=== PATIENT | male | born 1945 | race Caucasian/White ===

== ENCOUNTER 2018-12-16 06:03 | Inpatient (IN) | payer MEDICARE ==
[~2018-12-16 06:03] MED LIST: Acetaminophen TAB* 325 MG PO ONE; Buffered Lidocaine 1% SYRIN* 1 ML/SYRINGE INTRADERM ONE; Famotidine IV* 10 MG/ML 2 ML (20 mg) IV ONE; Gabapentin CAP(*) 300 MG PO ONE; Lactated Ringers 1000 ML Bag* 1,000 ML IV SCH; Tranexamic Acid 1,000 MG in NS 0.9% 50 ML* (outpatient use) IV SCH
[2018-12-16] MEDS ORDERED: Gabapentin CAP(*) 300 MG ONE (06:14)
[2018-12-16] MEDS ORDERED: Acetaminophen TAB* 325 MG ONE (06:14)
[2018-12-16] MEDS ORDERED: celeCOXIB CAP* 200 MG ONE (06:15)
[2018-12-16] MEDS ORDERED: Famotidine IV* 10 MG/ML 2 ML (20 mg) ONE (06:15)
[2018-12-16] MEDS ORDERED: ceFAZolin 2 GM in NS PREMIX(*) 2 GM/100 ML BAG IVPB ONE (06:15)
[2018-12-16] MEDS: celeCOXIB CAP* 200 MG PO ONE ×2 (06:34→06:35)
[2018-12-16] MEDS ORDERED: Lidocaine 2% PF * 5 ML VIAL ONE ×2 (06:56→08:05)
[2018-12-16] MEDS ORDERED: Propofol* 10 MG/ML 20 ML BTL ONE (06:56)
[2018-12-16] MEDS ORDERED: Dexamethasone IV* 4 MG/ML 1 ML (4 MG) ONE (06:56)
[2018-12-16] MEDS ORDERED: Propofol* 500 MG/50 ML BTL ONE (06:56)
[2018-12-16] MEDS ORDERED: Sodium Chloride 0.9%* 20 ML ONE (06:56)
[2018-12-16] MEDS ORDERED: Ketorolac INJ* 30 MG/ML 1 ML VIAL ONE (06:56)
[2018-12-16] MEDS ORDERED: ROPIVACAINE 5 MG/ML 30 ML BTL (0.5%) ONE ×2 (06:56→07:47)
[2018-12-16] MEDS ORDERED: Ondansetron INJ* 2 MG/ML VIAL ONE (06:56)
[2018-12-16] MEDS ORDERED: fentaNYL* 50 MCG/ML 2 ML VIAL (100 MCG VIAL) ONE (06:57)
[2018-12-16] MEDS ORDERED: KETAMINE HCL* 50 MG/ML 10 ML VIAL ONE (06:57)
[2018-12-16] MEDS ORDERED: Midazolam* 1 MG/ML 10 ML VIAL (10 MG) ONE (06:57)
[2018-12-16] MEDS ORDERED: Bupivacaine 0.5%* 50 ML MDV VIAL ONE ×2 (07:22→09:52)
[2018-12-16] MEDS ORDERED: Lidocaine 1% w EPI 1:200,000* SDV 30 ML VIAL ONE ×2 (08:02→09:52)
[2018-12-16] MEDS ORDERED: Ondansetron INJ* 2 MG/ML VIAL IV PRN ×2 (09:41→11:01)
[2018-12-16] MEDS ORDERED: fentaNYL* 50 MCG/ML 2 ML VIAL (100 MCG VIAL) IV PRN (09:41)
[2018-12-16] MEDS ORDERED: Naloxone* 0.4 MG/ML 1 ML VIAL IV PRN (09:41)
[2018-12-16] MEDS ORDERED: diPHENhydraMINE PO* 25 MG PO PRN (11:01)
[2018-12-16] MEDS ORDERED: Magnesium Hydroxide LIQ* 30 ML UDC PO PRN (11:01)
[2018-12-16] MEDS ORDERED: Ondansetron ODT TAB* 4 MG PO PRN (11:01)
[2018-12-16] MEDS ORDERED: diPHENhydraMINE IV* 50 MG/ML 1 ml VIAL (BENADRYL) IV PRN (11:01)
--- NOTE | 2018-12-16 13:22 | CONS ---
CC: Dr. Zhong; Dr. Hernandez * CONSULTATION REPORT: DATE OF CONSULT: 12/16/18 PRIMARY CARE PROVIDER: Dr. Zhong REQUESTING PROVIDER: Dr. Hernandez from Orthopedic Surgery REASON FOR CONSULTATION: Medical management of the patient with hypertension and history of PE. CHIEF COMPLAINT: Right knee pain. 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 Hernandez and is seen in the postoperative unit for medical management. Currently, the patient feels little "groggy." He does not feel pain in the right leg postoperatively. Medicine is going to be assisting with medical management. PAST MEDICAL HISTORY: 1. History of right knee tendon repair in 1970s and postoperative PE. 2. Status post right hip surgery in 2015 with postoperative PE likely related to fat emboli. 3. History of hypertension. 3. Dyslipidemia. 4. History of impaired fasting glucose tolerance. 5. History of anterior cervical fusion. 6. History of tonsillectomy in . HOME MEDICATIONS: Include: 1. PreserVision AREDS 1 tablet b.i.d. 2. Cialis 10 mg daily p.r.n. 3. Ibuprofen 400 mg on a p.r.n. basis. 4. Hydrochlorothiazide 25 mg daily. ALLERGIES: No known drug allergies, although Norvasc caused the patient to have leg edema. FAMILY HISTORY: Positive for mother with diabetes. SOCIAL HISTORY: The patient denies any tobacco, alcohol, drug use. He is retired from being a medical representative. His son Jamey is his surrogate. REVIEW OF SYSTEMS: Please see history of present illness. All the remaining 12 systems were reviewed with the patient and were otherwise negative. PHYSICAL EXAM: Blood pressure of 148/83, heart rate of 57 and regular, respiratory rate 17, oxygen saturation 94% on room air, temperature 97.2. General: The patient is a very pleasant 73-year-old male, who is in no acute distress. Alert, awake, and oriented x3. HEENT: Head: Atraumatic, normocephalic. Eyes: Pupils are equal, reactive to light and accommodation. Oropharynx is clear. Mucosa moist. Neck: Supple. No JVD. No bruit bilaterally. Cardiovascular: Regular rate and rhythm. No murmur. Respiratory : Clear to auscultation bilaterally. Abdomen: Soft, nontender. Bowel sounds are present in 4 quadrants. Extremities: There is trace right ankle edema. Pulses +2 bilaterally. There is no clubbing, cyanosis. The right lower extremity knee is wrapped in postsurgical dressings and Cryo unit and the dressings were not removed for evaluation. Neuro Evaluation: Cranial nerves II through XII grossly intact. Motor strength is 5/5 bilaterally. DIAGNOSTIC STUDIES/LAB DATA: Laboratory data, none currently. ASSESSMENT AND PLAN: 1. Status post right knee replacement. As per Dr. Hernandez service. The patient is going to be placed postoperatively on Eliquis 2.5 mg b.i.d. 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 2. In regards to the patient's hypertension. The patient used to be on hydrochlorothiazide. At this point, we will hold it. We will reevaluate in the morning. He also has a history of leg edema on Norvasc. 3. For DVT prophylaxis, the patient is going to be placed on Eliquis as mentioned above. 4. The patient's code status is full and his surrogate is his son. TIME SPENT: Approximately 52 minutes were spent on consultation of this patient , more than half of the time was spent [id number] with the patient during the interview and physical exam. [id number]/CPS #: [id number] LUCA
[2018-12-16] MEDS: traMADol TAB* 50 MG PO PRN (13:28)
[2018-12-16] MEDS ORDERED: traMADol TAB* 50 MG ONE (13:28)
[2018-12-16] MEDS: Acetaminophen TAB* 325 MG PO SCH ×2 (14:35→22:19)
[2018-12-16] MEDS: Morphine INJ* 2 MG/ML 1 ML SYRINGE (TWO MG - NEW SYRINGE VERSION) IV PRN ×2 (14:54→19:42)
[2018-12-16] MEDS: ceFAZolin 1 GM ADVAN(*) 1 GM in NS 0.9% 50 ML* 50 ML IVPB SCH ×2 (16:32→23:36)
[2018-12-16] MEDS: Cyclobenzaprine TAB* 10 MG PO PRN (17:12)
[2018-12-16] MEDS: oxyCODONE TAB* 5 MG TAB PO PRN (17:12)
[2018-12-16] MEDS: Docusate CAP* 100 MG PO SCH (22:19)
[2018-12-16] MEDS: Multivitamins/Mins (NF) AREDS2 1 CAP CAP PO SCH (22:20)
--- NOTE | 2018-12-16 22:35 | OP ---
DATE OF OPERATION: 12/16/18 - ROOM #341 DATE OF : 41 SURGEON: Riccardo Hernandez MD METER TESTER POLYPHASE: Sharon Vaughn RPA ANESTHESIA: Spinal and regional. PRE-OP DIAGNOSIS: Osteoarthritis, right knee. POST-OP DIAGNOSIS: Osteoarthritis, right knee. OPERATIVE PROCEDURE: Right total knee arthroplasty. ESTIMATED BLOOD LOSS: 200 cc. COMPLICATIONS: None. HARDWARE: Preeti Mcbride and Nephew Legion #7 femur, Maggie II #5 tibia, 9 mm posterior stabilized polyethylene 35 mm, 7.5 mm thick patella. SUMMARY: Mr. Webber is a 73-year-old male who has had a long history of trouble with both of his knees. He had undergone right knee surgery years ago and the scars were still clearly visible to see how he had a medial arthrotomy. He had been treated conservatively for years with antiinflammatories, Synvisc injections and steroid injections as well as physical therapy and all these had helped until recently. None of these had been giving him relief and he has been having more troubles with pain and limitations with getting around. I discussed with him that a total knee arthroplasty should work well to decrease his pain and improve his function. Risks of surgery such as infection, scar formation, stiffness, DVT, pulmonary embolism, hardware failure, continued pain as well as fracture through some of the pin sites used for navigation were discussed with him. He had wished to proceed. DESCRIPTION OF PROCEDURE: The patient had a femoral nerve block placed in the holding area and was brought back to the OR. Spinal anesthesia was introduced. Sousa catheter was placed. Tourniquet was placed over the proximal right thigh and was used during the case. Total tourniquet time would be 110 minutes. Right knee was prepped and then draped. Esmarch was used to exsanguinate the leg and the tourniquet was raised. A midline incision was made centered over the patella and carried 4 fingerbreadths proximally so that I could place the pins for the array through my incision. Incision was carried down through the skin and subcutaneous tissues. Small bleeders encountered were ligated using electrocautery. Sharp parapatellar arthrotomy was made and a gush of clear yellowish joint fluid was encountered. Soft tissues were sharply elevated from the medial side of the tibia and a fat pad was sharply excised. Patella measured 25 mm in thickness and a nice 10 mm cut was taken. Patella was then subluxed laterally and knee was flexed up. Knee was still very tight as there was an Ethibond stitch anteriorly, which caught part of his patellar tendon. I thought the Ethibond would give us a little extra reinforcement, but with flexing up further, an old Ethibond suture tore through. The patellar tendon, however, was still intact with no damage. Small pins were placed in the femur and the tibia for NAVIO guidance and then the large outrigger pins were placed. Two pins were placed into the tibia and 2 into the femur and the arrays were assembled. The knee then had the data points of the array, femur, tibia, medial and lateral malleoli, center of the tibia as well as Summers's line all scanned in with the NAVIO wand. Once all of that have been done, the femur was then scanned by running the wand over the femur and then running the wand over the tibia until enough data points have been collected so that the NAVIO system was happy. Knee was then covered and the sizes adjusted. I had templated him for a 7 femur and the NAVIO had selected an 8. This looked little large and the 7 looked much better. On the tibia, he was templated for a 5 to 6 and the 5 seemed to fit quite nicely. Rotation was adjusted. Stress views of the knee also had been taken. Alignment was adjusted until I was pleased with numbers for his extension and flexion gaps. NAVIO was then programmed for resecting the distal femur and saima was used to resect the femur. Drill holes were also made using the NAVIO guidance. Cutting block was placed and the alignment jig was then placed as well to make sure it was still in alignment and it was. Anterior and posterior femoral cut followed by the chamfer cuts were taken. Attention was turned to the tibia. Holes were drilled using NAVIO guidance again and the cutting block placed. This was pinned into place and again the alignment was checked using the NAVIO wand using the flat top on the handle and alignment appeared quite good. Tibial cut was then taken. With the tibial cut, it could be seen where he had a little bit of damage on the anterior lip of his tibia, where there was a stitch that came through the bone as well. He was then tried with the 10 spacer block and he now came out until full extension where he had about 15-degree flexion contracture before and with flexion at 90 degrees had a little of play, but was not unstable. I liked his alignment and his motion. Proximal tibia was sized and the 5 sat very nicely. Only later I see that I probably could have gotten a little bit more lateral, but this would have required pulling just a little bit more on the tibia and after that first Ethibond had broken, I was concerned about pulling too hard on that side and causing damage to the patella tendon insertion. Proximal tibia was drilled and then punched. Femoral trial was placed and the notch cut was finished using the drill and then the punch as well. He was trialed with 9 polyethylene, came out nicely until just about full extension and as I leaned into him, it came out easily. With flexion, he now flexed nicely past 120 degrees. Again, preoperatively he could barely get to 90. With flexion, however, the patella wanted to flip and even with the trial, he did not track well. Lateral release was performed taking down some large bands that he had in the gutter and then little bit of pie-crusting as well. Patella sized for a 35 and holes were drilled and trial was snapped into place to double check tracking; the array pins had been removed and with holding my thumb there, he easily tracked well. I thought that with closing the arthrotomy, tracking would improve as well. Trial instrumentation was removed. The knee was copiously pulse lavaged. Cement was being prepared. Implants were brought onto the table. Tibia followed by femur and patella were all cemented into place. Excess cement was removed and the cement was allowed to harden. Once the cement had hardened, the knee was again copiously pulse lavaged and searched for cement and several small pieces were found. Polyethylene was then snapped into place and he had the same wonderful motion and stability. Knee was again copiously pulse lavaged and tourniquet was let down. Few small bleeders encountered were ligated using electrocautery, but there were no pumpers. Knee was again copiously pulse lavaged and parapatellar arthrotomy was repaired using interrupted #1 Vicryl sutures. With flexion and extension, none of the stitches pulled or broke, so I thought he had an excellent repair. Knee was again pulse lavaged and subcutaneous tissues were reapproximated using 2-0 Vicryl. Skin was closed using davidson. Sterile dressing and a Cryo/Cuff were applied in the OR. The patient was then awakened and stable on transfer to the recovery room. [id number]/CPS #: [id number] LUCA
[2018-12-16] MEDS: D5W 1/2 NS 1000 ML BAG* 1,000 ML IV SCH (23:01)
[2018-12-16] MEDS: Magnesium Hydroxide LIQ* 30 ML UDC PO SCH (23:35)
[2018-12-17] MEDS: Cyclobenzaprine TAB* 10 MG PO PRN ×2 (00:14→15:36)
[2018-12-17] MEDS: oxyCODONE TAB* 5 MG TAB PO PRN ×4 (00:14→15:36)
[2018-12-17] MEDS: traMADol TAB* 50 MG PO PRN ×2 (03:45→13:25)
[2018-12-17 05:46] LABS: Hematocrit 33 % (42-52); Hemoglobin 11.2 g/dL (14.0-18.0); Mean Platelet Volume 6.9 fL (7.4-10.4); Platelet Count 264 10^3/uL (150-450)
[2018-12-17] MEDS: Acetaminophen TAB* 325 MG PO SCH ×2 (06:03→15:36)
[2018-12-17 06:08] LABS: BUN/Creatinine Ratio 19.4 (8-20); Calcium 8.4 mg/dL (8.6-10.3); EGFR African American 95.8 (>60); EGFR Non-African American 79.2 (>60)
[2018-12-17] MEDS: ceFAZolin 1 GM ADVAN(*) 1 GM in NS 0.9% 50 ML* 50 ML IVPB SCH (07:43)
[2018-12-17] MEDS: Docusate CAP* 100 MG PO SCH (08:27)
[2018-12-17] MEDS: Magnesium Hydroxide LIQ* 30 ML UDC PO SCH (08:27)
[2018-12-17] MEDS: Morphine INJ* 2 MG/ML 1 ML SYRINGE (TWO MG - NEW SYRINGE VERSION) IV PRN (08:28)
[2018-12-17] MEDS ORDERED: Vitamin THERAPEUTIC TAB PO SCH (09:00)
[2018-12-17] MEDS ORDERED: Influenza VAC *QUAD* 2019-20* 0.5 ML SYRINGE IM ONE (09:00)
[2018-12-17] MEDS ORDERED: Apixaban* 2.5 MG TAB PO SCH (09:00)
[2018-12-17] MEDS: D5W 1/2 NS 1000 ML BAG* 1,000 ML IV SCH (10:03)
[2018-12-17] MEDS: Multivitamins/Mins (NF) AREDS2 1 CAP CAP PO SCH (10:08)
--- NOTE | 2018-12-17 12:41 | PN ---
Subjective Date of Service: 12/17/18 Interval History: Pt c/o r knee pain. Just took a"pain pill" for it. Walked with PT today and may be able to go home tonight Objective Active Medications: Acetaminophen (Tylenol Tab*) 975 mg PO Q8H [facility] Last Admin: 12/17/18 06:03 Dose: 975 mg Apixaban (Eliquis*) 2.5 mg PO BID [facility] Last Admin: 12/17/18 08:27 Dose: 2.5 mg Bisacodyl (Dulcolax Supp*) 10 mg DE DAILY PRN PRN Reason: CONSTIPATION Cyclobenzaprine HCl (Flexeril Tab*) 10 mg PO Q6H PRN PRN Reason: SPASMS Last Admin: 12/17/18 00:14 Dose: 10 mg Diphenhydramine HCl (Benadryl Iv*) 25 mg IV Q6H PRN PRN Reason: PRURITIS Diphenhydramine HCl (Benadryl Po*) 25 mg PO Q6H PRN PRN Reason: PRURITIS Docusate Sodium (Colace Cap*) 100 mg PO BID [facility] Last Admin: 12/17/18 08:27 Dose: 100 mg Dextrose/Sodium Chloride (D5w 1/2 Ns 1000 Ml Bag*) 1,000 mls @ 100 mls/hr IV PER RATE [facility] Last Admin: 12/17/18 10:03 Dose: 100 mls/hr Lactulose (Lactulose*) 30 ml PO BID PRN PRN Reason: CONSTIPATION Magnesium Hydroxide (Milk Of Magnesia Liq*) 30 ml PO BID [facility] Last Admin: 12/17/18 08:27 Dose: 30 ml Magnesium Hydroxide (Milk Of Magnesia Liq*) 30 ml PO Q6H PRN PRN Reason: CONSTIPATION Morphine Sulfate (Morphine Inj (Syringe))*) 2 mg IV Q4H PRN PRN Reason: Pain - Unrelieved Last Admin: 12/17/18 08:28 Dose: 2 mg Multivitamins/Minerals (Preservision Areds 2) 1 cap PO BID [facility] Last Admin: 12/17/18 10:08 Dose: Not Given Ondansetron HCl (Zofran Inj*) 4 mg IV Q6H PRN PRN Reason: NAUSEA Last Admin: 12/16/18 19:42 Dose: 4 mg Ondansetron HCl (Zofran Odt Tab*) 4 mg PO Q6H PRN PRN Reason: NAUSEA Oxycodone HCl (Roxycodone Tab*) 5 mg PO Q4H PRN PRN Reason: Pain - Breakthrough Last Admin: 12/17/18 10:06 Dose: 5 mg Tramadol HCl (Ultram*) 50 mg PO Q6H PRN PRN Reason: PAIN - MODERATE Last Admin: 12/17/18 03:45 Dose: 50 mg Vital Signs - 8 hr 12/17/18 12/17/18 12/17/18 06:03 06:16 07:46 Temperature 97.4 F Pulse Rate 71 Respiratory 16 16 17 Rate Blood Pressure 122/70 (mmHg) O2 Sat by Pulse 97 Oximetry 12/17/18 12/17/18 12/17/18 07:50 08:28 08:30 Temperature Pulse Rate Respiratory 17 20 18 Rate Blood Pressure (mmHg) O2 Sat by Pulse 97 Oximetry 12/17/18 12/17/18 12/17/18 10:06 10:08 11:37 Temperature 97.4 F Pulse Rate 69 Respiratory 20 20 16 Rate Blood Pressure 130/65 (mmHg) O2 Sat by Pulse 98 Oximetry Oxygen Devices in Use Now: None Appearance: 73 yo m in nAD, aAOx3 Eyes: No Scleral Icterus, PERRLA Ears/Nose/Mouth/Throat: NL Teeth, Lips, Gums, Mucous Membranes Moist Neck: NL Appearance and Movements; NL JVP, Trachea Midline Respiratory: Symmetrical Chest Expansion and Respiratory Effort Cardiovascular: NL Sounds; No Murmurs; No JVD Abdominal: NL Sounds; No Tenderness; No Distention Lymphatic: No Cervical Adenopathy Extremities: No Clubbing, Cyanosis, - - trace r ankle edema Skin: - - R knee in post op dressings-not unwrapped Neurological: Alert and Oriented x 3, NL Muscle Strength and Tone Result Diagrams: 12/17/18 05:36 12/17/18 05:36 Assess/Plan/Problems-Billing Assessment: 68 yo M with h/o recurrent post op PE s/p elective R knee replacement surgery - Patient Problems (1) Knee joint replacement status Comment: s/p R knee replacement on 12/16/18-as per ortho (2) HTN (hypertension) Comment: Controlled. HCTZ can be restarted at d/c (3) DVT prophylaxis Comment: eliquis Status and Disposition: medicine consult
--- NOTE | 2018-12-17 15:03 | DS ---
Orthopedic Discharge Summary - Discharge Summary Date of Admission:12/16/18 Date of Discharge: 12/17/18 Date of Surgery: 12/16/18 Attending Orthopedic Provider: Dr Hernandez Pre-operative Diagnosis: right knee osteoarthritis Operative Procedure: Right total knee replacement, navio Disposition of Patient: home Condition of Patient: stable History: ARTHUR ROBERTS is a 73 year old M with years of increasingly severe right knee pain. Patient has failed conservative management and has elected to undergo a right total knee replacement Hospital Course: ARTHUR was admitted to [facility] on 12/16/18. Patient underwent a right total knee replacement without complication followed by a brief recovery in PACU and transfer to the Short Stay Surgical Unit in stable condition. Our hospitalist service, physical therapy also participated in this patients care. Post-op day 1: patient was alert and in no acute distress. Dressing was clean, dry and intact. Operative extremity dorsiflexion and plantarflexion intact, sensation intact to light touch distally, DP2+. Prior to discharge: dressing was changed, incision was clean, dry and intact. Patient was deemed to be medically and orthopedically stable for discharge. Physical therapy goals were met. Home Medications Medication Instructions Recorded Confirmed Type Hydrochlorothiazide TAB* 25 mg PO QAM 10/27/16 12/16/18 History [Hydrodiuril TAB*] Tadalafil [Cialis] 10 mg PO DAILY PRN 10/27/16 12/16/18 History Vit C/E/Zn/Coppr/Lutein/Zeaxan 1 each PO BID 12/09/18 12/16/18 History [Preservision Areds 2 Softgel] Acetaminophen TAB* [Tylenol TAB*] 975 mg PO Q8H tab 12/17/18 Rx Apixaban* [Eliquis*] 2.5 mg PO BID #60 tab 12/17/18 Rx Docusate CAP* [Colace Cap*] 100 mg PO BID PRN #90 cap 12/17/18 Rx oxyCODONE TAB* [Roxycodone TAB 5 5 mg PO Q4H PRN #70 tab MDD 10 12/17/18 Rx mg*] Discharge Instructions following Orthopedic Surgery: Activity: * Weight Bearing as tolerated * Continue physical therapy and occupational therapy exercises as shown * home PT Wound care: * OK to shower on post-op day 3, no bathing, swimming, or submerging wound. * Use gentle soap, pat dry. Cover with gauze, DIANE wrap or tape. * Visiting home nurse to do wound checks. Remove sutures and davidson in 2 weeks Call Orthopedic office for: * Increased drainage * Redness * Increased pain * Fever Go to ER with shortness of breath or chest pain. Diet: * Regular diet * Increase fluids and fiber to prevent constipation. * Continue to use stool softeners, call office if no bowel motion within 48 hours. Medications See Home Medication List in your packet for medications that you should take after discharge. DVT Prophylaxis: Eliquis Dosin.5 mg, 1 tab every 12 hours x 30 days. Increases bleeding tendency Pain Control: oxycodone Dosin mg 1 tab for moderate and 2 tabs for severe pain by mouth every 4-6 hours as needed for pain. Maximum of 10 tabs per day. Hold for sedation and wean off as soon as pain allows Antibiotics are required prior to any dental work. FOLLOW UP: Follow up with Dr. Vela] Within 4 weeks, call for appointment Please call our office with any questions or concerns ([phone]) RX to [facility] [place]
--- NOTE | 2018-12-17 15:05 | PN ---
Progress Note - Progress Note Date of Service: 12/17/18 SOAP: Subjective: []Pt seen at bedside, He feels well and desires DC home. Denies CP, SOB, dizziness, nausea. Objective: []Gen: Appears well, NAD RLE: Dressing changed incisions CDI, thigh soft, DF/PF intact, DP2+, sensation intact to light touch distally Calves supple and nontender without erythema, edema or palpable cords Assessment: []POD 1 sp RTK Plan: []WBAT PT/OT eliquis 2.5 mg po BID x 30 days post op DC home today Vital Signs Temp 97.4 F 12/17/18 11:37 Pulse 69 12/17/18 11:37 Resp 18 12/17/18 13:25 BP 130/65 12/17/18 11:37 Pulse Ox 98 12/17/18 11:37 Intake & Output 12/16/18 12/17/18 12/17/18 18:59 06:59 18:59 Intake Total 2025 1770 1315 Output Total 800 1100 Balance 3923 536 7914 Intake: IV Fluids 1905 790 995 D5W 1/2 NS 255 790 995 LR 1650 Oral 120 980 320 Output: Sousa 800 1100 Laboratory Last Values Hgb 11.2 g/dL (14.0-18.0) L 12/17/18 05:36 Hct 33 % (42-52) L 12/17/18 05:36 Plt Count 264 10^3/uL (150-450) 12/17/18 05:36 MPV 6.9 fL (7.4-10.4) L 12/17/18 05:36 Sodium 135 mmol/L (135-145) 12/17/18 05:36 Potassium 4.0 mmol/L (3.5-5.0) 12/17/18 05:36 Chloride 104 mmol/L (101-111) 12/17/18 05:36 Carbon Dioxide 27 mmol/L (22-32) 12/17/18 05:36 Anion Gap 4 mmol/L (2-11) 12/17/18 05:36 BUN 18 mg/dL (6-24) 12/17/18 05:36 Creatinine 0.93 mg/dL (0.67-1.17) 12/17/18 05:36 Est GFR ( Amer) 95.8 (>60) 12/17/18 05:36 Est GFR (Non-Af Amer) 79.2 (>60) 12/17/18 05:36 BUN/Creatinine Ratio 19.4 (8-20) 12/17/18 05:36 Glucose 149 mg/dL (70-100) H 12/17/18 05:36 Calcium 8.4 mg/dL (8.6-10.3) L 12/17/18 05:36
[2018-12-17 15:15] VITALS: BP 125/85
[2018-12-18] MEDS ORDERED: Bisacodyl SUPP* 10 MG SUPP PR PRN (11:02)
== END 2018-12-17 19:00 | disposition home health service (06) | DRG 470 ==
LOC: OR 06:03 → EDSTATUS 10:30 → SSU 12:53
PROVIDERS: ADMIT Orthopaedic Surgery; ATTEND Orthopaedic Surgery
PROC: 8E0Y0CZ Robotic Assisted Procedure of Lower Extremity, Open Approach (ICD-10-PCS; 2018-12-16)
PROC: 0SRC0J9 Replacement of Right Knee Joint with Synthetic Substitute, Cemented, Open Approach (ICD-10-PCS; principal; 2018-12-16 07:30)
DX: M17.11 Unilateral primary osteoarthritis, right knee (principal); I10 Essential (primary) hypertension; E78.5 Hyperlipidemia, unspecified; Z96.641 Presence of right artificial hip joint; H35.30 Unspecified macular degeneration; Z86.711 Personal history of pulmonary embolism; Z98.1 Arthrodesis status; Z88.8 Allergy status to other drugs, medicaments and biological substances; Z83.3 Family history of diabetes mellitus; Z86.718 Personal history of other venous thrombosis and embolism
CPT/HCPCS: 36415; 80048; 85014; 85018; 85049; 88305; 88311; 90686; A9270-GY; C1776; G8978-GP-CJ; G8979-GP-CI; J0690; J1100; J1885; J2001; J2250; J2270; J2405; J2704; J2795; J3010; J3490